=== PATIENT | male | born 1945 | race Caucasian/White ===

== ENCOUNTER → 2018-06-12 | Outpatient (CLI) | payer OTHER ==
--- NOTE | 2018-06-12 10:19 | PCVCIMAG ---
EXAM: BILATERAL LOWER EXTREMITY ARTERIAL DUPLEX INDICATION: Peripheral Arterial Disease. Leg pain. Nonhealing ulcer left foot plantar aspect. FINDINGS: Right Leg: Common femoral artery and profunda femoral artery are patent. Superficial femoral artery and popliteal artery are patent. The peroneal artery and posterior tibial artery are patent. 60-70% stenosis proximal anterior tibial artery. Left Leg: Common femoral and profunda femoral arteries are patent. Superficial femoral artery and popliteal artery are patent. Posterior tibial artery is patent. 60% stenosis proximal anterior tibial artery. High-grade stenosis peroneal artery. IMPRESSION: 60-70% stenosis proximal right anterior tibial artery. Otherwise no flow limiting stenosis in the right lower extremity. 60% stenosis proximal left anterior tibial artery. The left peroneal artery not well seen may be due to high-grade stenosis. LOC:[id number]
== END | disposition home or self-care (01) ==
LOC: PCVCIMAG 08:34
PROVIDERS: ATTEND Nuclear Medicine Nuclear Cardiology
DX: I73.9 Peripheral vascular disease, unspecified (principal); L97.529 Non-pressure chronic ulcer of other part of left foot with unspecified severity; E78.5 Hyperlipidemia, unspecified; R20.9 Unspecified disturbances of skin sensation; Z87.891 Personal history of nicotine dependence
CPT/HCPCS: 93925

== ENCOUNTER → 2018-06-22 | Outpatient (CLI) | payer OTHER ==
[~2018-06-22] MED LIST: CLOPIDOGREL BISULFATE 75 MG TABLET ONE; DIAZEPAM 10 MG TABLET. ONE; EPTIFIBATIDE BOLUS 2,000 MCG/ML 10ML VIAL. IV ONE; HEPARIN for SUB-Q USE 5,000 UNIT/ML VIAL. SQ ONE; IODIXANOL 270 MG/ML 100 ML VIAL. ONE; IV NORMAL SALINE 500ML BAG 500 ML ONE; LIDOCAINE 1%/EPI 1:100,000 20 ML VIAL. ONE; MIDAZOLAM HCL/PF 2 MG/2 ML VIAL. ONE; fentaNYL PF VIAL 100 MCG/2 ML VIAL ONE; hydrALAZINE 20 MG/ML VIAL. ONE
--- NOTE | 2018-06-22 18:15 | PCVCINTER ---
EXAM: 1. AORTOGRAM AND BILATERAL LOWER EXTREMITY RUNOFF ANGIOGRAM 2. BILATERAL RENAL ANGIOGRAPHY INDICATION: Peripheral arterial disease. Nonhealing ulcer left lower extremity. Hypertension. Renal atherosclerosis. No prior catheter based angiographic study is available. A full diagnostic angiogram study is performed today and the decision to intervene is based on this diagnostic study. PROCEDURE: Procedure and risks of angiography intervention is appropriate including limb loss stroke and were discussed with the patient's family and consent obtained. The patient's right groin was prepped in the normal sterile fashion. IV conscious sedation was used throughout procedure with appropriate monitoring from 1:00 PM through 1:45 PM. Ultrasound was used to interrogate the right groin and showed the right common femoral artery to be patent. A permanent spot film was obtained. Under ultrasound guidance access into the right common femoral artery was obtained and a 5 [place] sheath was placed. Through this a 5 [place] flush catheter was placed into the abdominal aorta at the level of the renal arteries and AP aortogram was performed. Catheter was positioned at the aortic bifurcation and both oblique views of the pelvis were obtained. Catheter was positioned into the right external iliac artery and right leg runoff angiography was performed. Catheter was exchanged for a visceral catheter was placed into the right renal arteries and right renal angiograms obtained. Catheter was placed into the the left renal arteries and left renal angiograms were obtained. Catheter was advanced to the level of the left external iliac artery and left leg runoff angiography was obtained. Catheters and wires removed. Sheath was removed and hemostasis obtained using the FISH device. No immediate complications. FINDINGS: Aortogram: There is one right and one left renal artery. Moderate plaque infrarenal abdominal aorta without significant stenosis. Pelvis: The right and left common and external iliac arteries show good patency. Both internal iliac arteries are patent. The right and left common femoral and profunda femoral arteries are patent. Right renal artery: Minimal plaque proximal vessel does not cause significant stenosis. Left renal artery: Moderate plaque proximal vessel results in 40% stenosis proximally. Right leg: The superficial femoral artery and popliteal artery are patent. Mild stenosis proximal anterior tibial artery which shows good patency throughout. Dorsalis pedis is diminutive in size. The peroneal artery is small but otherwise patent. Several moderate scattered stenosis throughout the mid posterior tibial artery. The plantar arteries are diminutive in size. Left leg: Superficial femoral artery and popliteal arteries show good patency throughout. The posterior tibial artery shows adequate patency to the level of the ankle. The plantar arteries are diminutive in size. The peroneal artery is somewhat small but otherwise patent. The anterior tibial artery shows 50% stenosis proximal not felt be critically flow-limiting. This vessel shows good patency throughout its length. The proximal dorsalis pedis is small in the distal dorsalis pedis and metatarsal arch are diminutive in size. IMPRESSION: The dorsalis pedis and plantar arteries are diminutive in size bilaterally. This likely accounts for the delay in healing of the left plantar ulcer. These arteries are not readily amenable to intervention LOC:[id number]
== END | disposition home or self-care (01) ==
LOC: PCVCINTER 13:00
PROVIDERS: ATTEND Nuclear Medicine Nuclear Cardiology
DX: I70.248 Atherosclerosis of native arteries of left leg with ulceration of other part of lower leg (principal); L98.498 Non-pressure chronic ulcer of skin of other sites with other specified severity; I70.1 Atherosclerosis of renal artery; I70.0 Atherosclerosis of aorta; I11.0 Hypertensive heart disease with heart failure; I50.32 Chronic diastolic (congestive) heart failure; I70.291 Other atherosclerosis of native arteries of extremities, right leg; J43.9 Emphysema, unspecified; Z90.49 Acquired absence of other specified parts of digestive tract; Z98.890 Other specified postprocedural states; Z87.891 Personal history of nicotine dependence; Z72.89 Other problems related to lifestyle; Z79.899 Other long term (current) drug therapy; F90.9 Attention-deficit hyperactivity disorder, unspecified type; E78.00 Pure hypercholesterolemia, unspecified; I25.10 Atherosclerotic heart disease of native coronary artery without angina pectoris
CPT/HCPCS: 36246; 36252; 75716; 76937; 99152; 99153; C1751; C1760; C1769; C1894; J0360; J1644; J2250; J3010; J3490; J7040; Q9967; J0690; J1327